=== PATIENT | male | born 1975 | race Caucasian/White ===

== ENCOUNTER 2016-12-30 12:28 | Emergency (ER) | payer OTHER ==
[~2016-12-30] VITALS: Ht 177.8 cm; Wt 95.3 kg
--- NOTE | 2016-12-30 14:02 | ED GI/GU/ABDOMINAL COMPLAINT ---
History of Present Illness General Chief Complaint: Abdominal Pain/Flank Pain Stated Complaint: "I JUST HAVE THIS BACK PAIN" Source: patient Exam Limitations: no limitations Vital Signs & Intake/Output Vital Signs & Intake/Output Vital Signs Date Time Temp Pulse Resp B/P Pulse O2 O2 Flow FiO2 Ox Delivery Rate 12/30 1236 97.7 74 20 135/79 97 Room Air Allergies Coded Allergies: No Known Allergies (12/30/16) Reconcile Medications Ibuprofen 200 MG TABLET 2 TAB PO Q6 PAIN (Reported) Triage Note: TRIAGE: PT TO ER C/C PAIN TO L BACK AND L FLANK AREA, INTERMITTENT X 1 WK. FEELS TIRED TODAY BUT DENIES ANY OTHER S/S. TAKING IBUPROFEN, UNSURE IF IT'S HELPING. DENIES URINARY S/S. DENIES DIFFICULTY WITH BOWELS. PMHX INCLUDES DISK SURGERY. Triage Nurses Notes Reviewed? yes HPI: Patient presents for evaluation of left-sided flank and abdominal pain that began about 10 days ago. The pain has been intermittent and colicky in nature. At times it also feels like a stabbing sensation. Patient initiated in the back and flank and has now migrated towards the abdomen. Patient denies any associated dysuria or diarrhea. He does however have a history of intermittent "stomach problems" that often result in constipation and diarrhea. Patient also denies any associated fever, chills, diaphoresis, vomiting or trauma/injury. There seems to be no association with position. Past History Travel History Traveled to [place] past 21 day No Medical History Any Pertinent Medical History? 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 No Review of Systems Review of Systems Constitutional: Reports: no symptoms. EENTM: Reports: no symptoms. Respiratory: Reports: no symptoms. Cardiovascular: Reports: no symptoms. GI: Reports: see HPI. Genitourinary: Reports: no symptoms. Musculoskeletal: Reports: no symptoms. Skin: Reports: no symptoms. Neurological/Psychological: Reports: no symptoms. Hematologic/Endocrine: Reports: no symptoms. Immunologic/Allergic: Reports: no symptoms. All Other Systems: Reviewed and Negative Physical Exam Physical Exam Gastrointestinal: see below Comments: Gen.: Well-nourished, well-developed, no acute respiratory distress. Head: Normocephalic, atraumatic. Eyes: Normal inspection bilaterally Ears: Normal inspection bilaterally Nose: Normal inspection Throat/mouth : Moist mucosa Neck: Supple, full range of motion, no goiter Heart: Regular rate and rhythm, no murmurs rubs or gallops Lungs: Clear to auscultation bilaterally with normal air entry Chest: Nontender Back: Normal range of motion Abdomen: Soft, nontender, nondistended, normal bowel sounds Extremities: Normal range of motion grossly, equal radial pulses, no cyanosis clubbing or edema Neurologic: Cranial nerves grossly intact, speech is clear Skin: warm and dry Psychiatric: Calm, cooperative, no apparent delusions or hallucinations Core Measures ACS in differential dx? No Severe Sepsis Present: No Septic Shock Present: No Progress Differential Diagnosis: IBS, IBD, lactose intolerance, celiac sprue, renal colic , diverticulitis, shingles Plan of Care: Orders Procedure Date/time Status LIPASE 12/30 1401 Complete COMPREHENSIVE METABOLIC PANEL 12/30 1401 Complete CBC WITHOUT DIFFERENTIAL 12/30 1401 Complete URINALYSIS 12/30 1352 Complete Laboratory Tests 12/30/16 1414: Anion Gap 10, Estimated GFR > 60, BUN/Creatinine Ratio 18.8, Glucose 100 H, Calcium 9.8, Total Bilirubin 0.9, AST 17, ALT 41, Alkaline Phosphatase 35, Total Protein 7.3, Albumin 4.2, Globulin 3.1, Albumin/Globulin Ratio 1.4, Lipase 96, CBC w Diff NO MAN DIFF REQ, RBC 4.76, MCV 95.6 H, MCH 32.3 H, RDW 12.6, MPV 6.9 L, Gran % 59.4, Lymphocytes % 29.2, Monocytes % 8.9, Eosinophils % 2.1, Basophils % 0.4, Absolute Granulocytes 3.2, Absolute Lymphocytes 1.6, Absolute Monocytes 0.5, Absolute Eosinophils 0.1, Absolute Basophils 0, PUBS MCHC 33.8 12/30/16 1355: Urine Color YEL, Urine Clarity CLEAR, Urine pH 6.5, Ur Specific [place] 1.010, Urine Protein NEG, Urine Ketones NEG, Urine Nitrite NEG, Urine Bilirubin NEG, Urine Urobilinogen 0.2, Ur Leukocyte Esterase NEG, Ur Microscopic EXAM NOT REQUIRED, Urine Hemoglobin NEG, Urine Glucose NEG Diagnostic Imaging: Discussed w/RAD: CT Scan. Radiology Impression: PATIENT: CONSTANTIN BETHEA JR PRESENT AGE: 41 PATIENT ACCOUNT NO: [id number] : 75 LOCATION: [facility] ORDERING PHYSICIAN: JERRY GALVIN MD SERVICE DATE: 12/30/16 EXAM TYPE: CAT - CT ABD & PELVIS W/O IV CONTRAS EXAMINATION: CT ABDOMEN AND PELVIS WITHOUT CONTRAST CLINICAL INFORMATION: Left renal colic. Diverticulitis. COMPARISON: None TECHNIQUE: Multidetector volumetric imaging was performed from the superior aspect of the liver through the pubic symphysis. Sagittal and coronal reformatted images were obtained on the technologist's workstation. DLP: 663.66 mGy-cm FINDINGS: LUNG BASES: The visualized lung bases are unremarkable. LIVER, GALLBLADDER, AND BILIARY TREE: The liver is normal in size, shape, and attenuation. No focal hepatic lesion or biliary ductal dilatation is present. The gallbladder appears unremarkable. Slightly hyperdense bile dependent portion of the gallbladder. PANCREAS: Unremarkable. SPLEEN: Unremarkable. ADRENAL GLANDS : Unremarkable. KIDNEYS AND URETERS: No evidence of renal stones or hydronephrosis. There is no hydroureter. No gross cortical abnormality on the noncontrast CT images. BLADDER: Unremarkable. GASTROINTESTINAL TRACT: There is colonic diverticulosis noted in the proximal sigmoid colon. No evidence of acute diverticulitis. No acute bowel pathology. Limited evaluation of the bowel wall due to incomplete distention. Nonobstructive bowel gas pattern. ABDOMINAL WALL: No significant hernia is appreciated. LYMPH NODES: Small benign-appearing retroperitoneal lymph nodes. No evidence of lymphadenopathy. VASCULAR: Unremarkable. PELVIC VISCERA: Minor prostatic calcifications. Prostate gland measures approximately 4.6 cm in transverse diameter. OSSEOUS STRUCTURES: Degenerative changes lower lumbar spine L3-L4-L5-S1 levels. Posterior disc osteophyte complex L3-L4 level resulting in mild to moderate spinal stenosis. Posterior osteophyte and annular bulges noted at L3-L4-L5-S1 levels. No acute or suspicious osseous abnormality. IMPRESSION: 1. No evidence of renal stones or obstructive uropathy. 2. Colonic diverticulosis. No evidence of acute diverticulitis. 3. Degenerative changes mid to lower lumbar spine. DICTATED BY: FREDY ARORA MD DATE/TIME DICTATED:12/30/161436 SUPERVISING FIRE MARSHAL:DEVI DATE/TIME TRANSCRIBED:12/30/161436 CONFIDENTIAL, DO NOT COPY WITHOUT APPROPRIATE AUTHORIZATION. <Electronically signed in Other Vendor System> SIGNED BY: FREDY ARORA MD 12/30/16 1454 Initial ED EKG: none Comments: 12/30/2016 3:20:50 PM I have updated Constantin on his test results. He is repeatedly declined pain medication here in the emergency department. Notified him of the degenerative changes in his lumbar spine and the scattered mild lymphadenopathy. Departure Departure Disposition: HOME OR SELF CARE Condition: Stable Clinical Impression Primary Impression: Flank pain Secondary Impressions: Degenerative joint disease (DJD) of lumbar spine Qualifiers: Spinal osteoarthritis complication: unspecified spinal osteoarthritis Qualified Code: M47.816 - Spondylosis without myelopathy or radiculopathy, lumbar region Referrals: SARAH ARGUETA,JOSSIE Bundy (PCP/Family) Additional Instructions: Voltaren as needed for your pain (discontinue the ibuprofen). Rest, no exertion or heavy lifting. Follow-up with your primary care doctor later this week for reevaluation and further testing as indicated. Since the cause of your pain is unclear at this point please return if any concerns or sudden worsening. Please note that there might be incidental findings in your evaluation that are unrelated to the current emergency department visit. Please notify your primary care doctor about this emergency department visit in order to obtain and review all of the testing performed so that these incidental findings can be monitored as needed. If you had an x-ray performed, please understand that some fractures may not be seen on the initial set of x-rays. If your symptoms persist you might need a repeat set of x-rays to check for such a fracture. If you had a laceration evaluated, please understand that foreign bodies such as glass or wood may not be visible to the naked eye or on plain x-rays. If the wound becomes red, swollen, increasingly more painful or if there is any drainage from the wound, please have it reevaluated by a physician for the possibility of a retained foreign body. Thank you for choosing the [facility] for your care. It was a pleasure to serve you today. Jerry Galvin M.D. [facility] Departure Forms: Customer Survey General Discharge Information
[2016-12-30] MEDS ORDERED: IBUPROFEN200 M2 PO (14:09)
[2016-12-30 14:37] LABS: ABSOLUTE BASOPHIL COUNT 0 /CUMM (0.0-0.2); ABSOLUTE EOSINOPHIL COUNT 0.1 /CUMM (0.0-0.7); ABSOLUTE GRANULOCYTE CT 3.2 /CUMM (1.4-6.5); ABSOLUTE LYMPH COUNT 1.6 /CUMM (1.2-3.4); ABSOLUTE MONOCYTE COUNT 0.5 /CUMM (0.10-0.60); BASOPHIL % 0.4 % (0.0-2.0); EOSINOPHIL % 2.1 % (0-5); GRANULOCYTE % 59.4 % (42.2-75.2); HEMATOCRIT 45.5 % (42-52); MEAN CORPUSCULAR HGB 32.3 PG (27.0-31.0); MEAN CORPUSCULAR HGB CONC 33.8 G/DL (33.0-37.0); MEAN CORPUSCULAR VOLUME 95.6 FL (80.0-94.0); MEAN PLATELET VOLUME 6.9 FL (7.4-10.4); PLATELET COUNT 255 /CUMM (130-400); RBC DISTRIBUTION WIDTH 12.6 % (11.5-14.5); RED BLOOD CELL CT 4.76 /CUMM (4.70-6.10); WHITE BLOOD CELL COUNT 5.4 /CUMM (4.8-10.8)
--- NOTE | 2016-12-30 14:54 | CT SCAN REPORT ---
EXAMINATION: CT ABDOMEN AND PELVIS WITHOUT CONTRAST CLINICAL INFORMATION: Left renal colic. Diverticulitis. COMPARISON: None TECHNIQUE: Multidetector volumetric imaging was performed from the superior aspect of the liver through the pubic symphysis. Sagittal and coronal reformatted images were obtained on the technologist's workstation. DLP: 663.66 mGy-cm FINDINGS: LUNG BASES: The visualized lung bases are unremarkable. LIVER, GALLBLADDER, AND BILIARY TREE: The liver is normal in size, shape, and attenuation. No focal hepatic lesion or biliary ductal dilatation is present. The gallbladder appears unremarkable. Slightly hyperdense bile dependent portion of the gallbladder. PANCREAS: Unremarkable. SPLEEN: Unremarkable. ADRENAL GLANDS: Unremarkable. KIDNEYS AND URETERS: No evidence of renal stones or hydronephrosis. There is no hydroureter. No gross cortical abnormality on the noncontrast CT images. BLADDER: Unremarkable. GASTROINTESTINAL TRACT: There is colonic diverticulosis noted in the proximal sigmoid colon. No evidence of acute diverticulitis. No acute bowel pathology. Limited evaluation of the bowel wall due to incomplete distention. Nonobstructive bowel gas pattern. ABDOMINAL WALL: No significant hernia is appreciated. LYMPH NODES: Small benign-appearing retroperitoneal lymph nodes. No evidence of lymphadenopathy. VASCULAR: Unremarkable. PELVIC VISCERA: Minor prostatic calcifications. Prostate gland measures approximately 4.6 cm in transverse diameter. OSSEOUS STRUCTURES: Degenerative changes lower lumbar spine L3-L4-L5-S1 levels. Posterior disc osteophyte complex L3-L4 level resulting in mild to moderate spinal stenosis. Posterior osteophyte and annular bulges noted at L3-L4-L5-S1 levels. No acute or suspicious osseous abnormality. IMPRESSION: 1. No evidence of renal stones or obstructive uropathy. 2. Colonic diverticulosis. No evidence of acute diverticulitis. 3. Degenerative changes mid to lower lumbar spine.
[2016-12-30] MEDS ORDERED: DICLOFENAC POTA50 M1 PO (15:36)
[2016-12-30 15:54] VITALS: BP 133/80
== END 2016-12-30 15:55 ==
LOC: ERH 12:28
PROVIDERS: Emergency Medicine
DX: M51.36 Other intervertebral disc degeneration, lumbar region (principal)
CPT/HCPCS: 74176; 81003